=== PATIENT | female | born 1940 | race Two or more races ===

== ENCOUNTER 2024-02-21 07:58 | Inpatient (IN) | payer OTHER ==
[~2024-02-21] VITALS: Ht 170.2 cm; Wt 68.0 kg
[2024-02-21] MEDS ORDERED: SYNTHROID75 MCG PO (16:00)
[2024-02-21] MEDS ORDERED: SYMBICORT 16010.2 GM IH (16:01)
[2024-02-21] MEDS ORDERED: PANTOPRAZOLE SO40 MG PO (16:01)
[2024-02-26] MEDS ORDERED: CEFAZOLIN SODIUM 1,000 MG VIAL IV ONE (09:45)
[2024-02-26] MEDS ORDERED: LOSARTAN POTASS25 MG (11:36)
[2024-02-26] MEDS ORDERED: MORPHINE SULFATE 4 MG/ML CARTRIDGE IV SCH (13:00)
[2024-02-26] MEDS ORDERED: CEFAZOLIN SODIUM 1,000 MG VIAL IV SCH (14:00)
[2024-02-26] MEDS ORDERED: LOSARTAN POTASSIUM 50 MG TABLET PO SCH (17:57)
[2024-02-26] MEDS ORDERED: ENALAPRILAT DIHYDRATE 1.25 MG/ML VIAL IV PRN (18:00)
[2024-02-26] MEDS ORDERED: PANTOPRAZOLE SODIUM 40 MG/VIAL VIAL IV SCH (18:16)
[2024-02-26] MEDS ORDERED: FAMOTIDINE/PF 20 MG/2 ML VIAL IV SCH ×2 (21:00)
[2024-02-27] MEDS ORDERED: LEVOTHYROXINE SODIUM 75 MCG TABLET PO SCH (06:00)
[2024-02-27] MEDS ORDERED: PHENOL 177 ML BOTTLE MM SCH (09:00)
== END 2024-02-27 10:27 | disposition home or self-care (01) | DRG 328 ==
LOC: SURG 02-26 05:30 → O/R 02-26 05:30 → SURH 02-26 07:00 → SURG 02-26 12:40
PROVIDERS: ADMIT Surgery; ATTEND Surgery
PROC: 8E0W4CZ Robotic Assisted Procedure of Trunk Region, Percutaneous Endoscopic Approach (ICD-10-PCS; 2024-02-26)
PROC: 0BQT4ZZ Repair Diaphragm, Percutaneous Endoscopic Approach (ICD-10-PCS; principal; 2024-02-26 07:00)
DX: K44.9 Diaphragmatic hernia without obstruction or gangrene (principal); Z20.822 Contact with and (suspected) exposure to COVID-19
CPT/HCPCS: 43281; S2900